=== PATIENT | male | born 1950 | race Caucasian/White ===

== ENCOUNTER 2018-09-08 09:23 | Day surgery (SDC) | payer OTHER ==
[~2018-09-08] VITALS: Ht 175.3 cm; Wt 77.3 kg
[2018-09-08 11:40] VITALS: BP 139/78; Ht 175.3 cm; Wt 77.3 kg
[2018-09-08] MEDS ORDERED: BAYER CHEWABLE81 MG PO (11:55)
[2018-09-08] MEDS ORDERED: FLOMAX0.4 MG PO (11:55)
[2018-09-08] MEDS ORDERED: LOPRESSOR25 MG PO (11:55)
[2018-09-08] MEDS ORDERED: MUCINEX600 MG PO (11:56)
[2018-09-08] MEDS ORDERED: PROVENTIL/2.5 MG/3 M INH (11:57)
[2018-09-08] MEDS ORDERED: SINGULAIR10 MG PO (11:57)
--- NOTE | 2018-09-08 14:02 | NUR ---
DC INSTRUCTIONS GIVEN TO PT. STATES UNDERSTANDING. GUARDS AT BEDSIDE. DC'D IV CATH FULLY INTACT.
--- NOTE | 2018-09-08 14:06 | NUR ---
PT LEFT UNIT VIA WC W/ GUARD AT SIDE AT 1410
--- NOTE | 2018-09-09 14:51 | OP ---
PATIENT NAME: ABEL BETANCOURT MEDICAL RECORD: [id number] :48 LOCATION:D.OPS ADMISSION DATE: SURGEON: PRO HAMMER MD DATE OF OPERATION: 09/08/2018 PREOPERATIVE DIAGNOSES: 1. Left upper quadrant abdominal pain. 2. Epigastric abdominal pain. 3. Gastroesophageal reflux. 4. History of peptic ulcer disease. 5. Dysphagia. POSTOPERATIVE DIAGNOSES: 1. Left upper quadrant abdominal pain. 2. Epigastric abdominal pain. 3. Gastroesophageal reflux. 4. History of peptic ulcer disease. 5. Dysphagia. 6. LA grade III distal esophagitis. 7. Schatzki's ring. 8. 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 9. Large hiatal hernia (grade IV). 10. No peptic ulcer. PROCEDURES: 1. Esophagogastroduodenoscopy with distal esophageal and antral biopsies. 2. Esophageal dilation with a tngehdq-ecz-vtmncdnk balloon to 60-German. SURGEON: Pro Hammer MD MANAGER OF DATA: None. BLOOD LOSS: Minimal. ANESTHESIA: IV sedation. COMPLICATIONS: None. The risks, possible complications and alternatives to the procedure were explained to the patient. He elects to proceed. The patient has undergone esophageal dilation in the past for dysphagia. He states that this did help his dysphagia. His dysphagia is now worsening. He desired a repeat esophageal dilation. The patient's endoscopic procedure is being done here at the hospital as he is ASA 3 and has multiple comorbidities. ENDOSCOPIC COURSE: The patient was conveyed to the endoscopy suite electively on 09/08/2018. IV sedation was induced by the anesthesia staff. A bite block was inserted. A gastroscope was inserted into the mouth. It was advanced easily into the hypopharynx. The esophagus was easily intubated as were the stomach and duodenum. Upon withdrawal, retroflexed and angulus views were obtained. Antral biopsies were obtained. I then advanced a clwmxta-ddy-cadpcprb balloon down through the gastroscope. I sequentially OPERATIVE REPORT [id number] ABEL BETANCOURT dilated the entire length of the esophagus to 60-German. The gastroscope and balloon dilator were then removed. I then re-endoscoped the patient's esophagus and stomach. There have been no false passage or perforation. Distal esophageal biopsies were obtained to rule out Longoria's esophagus. The endoscope was then withdrawn under direct vision. The patient may need to see an ENT physician regarding this right vocal cord lesion, which appears to be a papilloma. I would recommend continuing H2 aisha therapy or proton pump inhibitor therapy due to the large hiatal hernia and due to the degree of esophagitis present. I believe that the epigastric abdominal pain and the left upper quadrant abdominal pain may be due to bile reflux gastritis, which may improve with a bile binder such as Questran Light. There is no need for the patient to follow up with me in the office unless he develops a complication related to this operative procedure. TRANSINT:[id number] Voice Confirmation ID: [id number] DOCUMENT ID: [id number] PRO HAMMER MD at 1451 CC: SAFIA BOSTON MD, PRO SCHMIDT MD, PAOLA DIXON MD and [id number] DICTATION DATE: 09/08/18 1317 SMOKE EATER: 09/08/18 1551 [facility] 09/08/18 [facility] [address] [place] [address]
--- NOTE | 2018-09-09 14:51 | HP ---
PATIENT: ABEL BETANCOURT MEDICAL RECORD: [id number] ACCOUNT: [id number] LOCATION:[facility] : 48 ADMISSION DATE: 09/08/18 PCP: No PCP HISTORY AND PHYSICAL EXAMINATION PREOPERATIVE DIAGNOSES: Left-sided abdominal pain with radiation to the back, epigastric pain, history of peptic ulcer disease. This patient is being down in the hospital as he has multiple comorbidities and it was too risky to perform this procedure at the long term. DIAGNOSES: Include hypertension, chronic kidney disease stage III, COPD, coronary artery disease with 3-vessel CABG, chronic diastolic congestive heart failure, thoracic and abdominal aortic aneurysm, peripheral vascular disease, gastroesophageal reflux, eczema, seborrheic dermatitis, bilateral lower extremity edema, osteoarthritis, degenerative disc disease, right lower extremity stent, history of esophageal dilation. HOME MEDICINES: Acetaminophen, analgesic balm, artificial tears, low dose aspirin, atorvastatin, calcium carbonate, carvedilol, eczema lotion, H2 aisha (ranitidine), sertraline, tamsulosin, therapeutic tar shampoo, Xopenex high flow inhaler. PHYSICAL EXAMINATION: GENERAL: The patient appears chronically ill. He does not appear acutely ill. VITAL SIGNS: Reviewed. EARS: External ears appear normal. EYES: Extraocular movements are intact. NECK: Trachea is midline. CHEST: No intercostal retractions. PULMONARY: Nonlabored, no stridor. IMPRESSION: 1. Gastroesophageal reflux. 2. History of peptic ulcer disease. 3. Left upper quadrant abdominal pain. 4. Epigastric abdominal pain. PLAN: EGD with biopsies. TRANSINT:[id number] Voice Confirmation ID: [id number] DOCUMENT ID: [id number] PRO HAMMER MD at 1451 CC: SAFIA BOSTON MD, PRO SCHMIDT MD, PAOLA DIXON MD and [id number] DICTATION DATE: 09/08/18 1234 OPEN HEARTH FURNACE LABORER: 09/08/18 1322 [facility] 09/08/[address] [address]
== END 2018-09-08 14:10 | disposition home or self-care (01) ==
LOC: D.OPS 09:23
PROVIDERS: ATTEND Surgery
DX: K21.9 Gastro-esophageal reflux disease without esophagitis (principal); Z87.11 Personal history of peptic ulcer disease; R13.10 Dysphagia, unspecified; K20.8 Other esophagitis; K22.2 Esophageal obstruction; K44.9 Diaphragmatic hernia without obstruction or gangrene; K29.50 Unspecified chronic gastritis without bleeding; J38.3 Other diseases of vocal cords; Z01.812 Encounter for preprocedural laboratory examination

== ENCOUNTER 2019-03-23 05:27 | Day surgery (SDC) | payer OTHER ==
[~2019-03-23] VITALS: Ht 175.3 cm; Wt 78.2 kg
[~2019-03-23 05:27] MED LIST: BAYER CHEWABLE81 MG PO; FLOMAX0.4 MG PO; LOPRESSOR25 MG PO; MUCINEX600 MG PO; PROVENTIL/2.5 MG/3 M INH; SINGULAIR10 MG PO
[2019-03-23 06:18] LABS: HEMOGLOBIN 14.4 g/dL (13.5-17.5); MCH 31.2 pg (26.0-34.0); MCHC 32.7 g/dL (31.0-37.0); MCV 95.2 fL (80.0-100.0); RBC 4.62 10x6/uL (4.20-6.10); RDW 13.4 % (11.5-14.5); WBC 8.9 10x3/uL (4.8-10.8)
[2019-03-23 06:20] VITALS: BP 146/81; Ht 175.3 cm; Wt 78.2 kg
--- NOTE | 2019-03-23 09:29 | NUR ---
PT RESTING QUIETLY IN BED. GUARDS AT BEDSIDE. DENIES PAIN/NEEDS AT THIS TIME. WILL CONTINUE TO MONITOR.
--- NOTE | 2019-03-23 10:47 | NUR ---
PT RESTING QUIETLY IN BED. DENIES PAIN/NEEDS AT THIS TIME. UPDATE ON PROCEDURE TIME WAS GIVEN.
--- NOTE | 2019-03-23 13:50 | NUR ---
DC INSTRUCTIONS GIVEN TO PT. STATES UNDERSTANDING. DC'D IV CATH FULLY INTACT.
--- NOTE | 2019-03-23 13:58 | NUR ---
PT LEFT UNIT VIA WC AT 1402
--- NOTE | 2019-03-23 15:41 | HP ---
PATIENT: ABEL BETANCOURT MEDICAL RECORD: [id number] ACCOUNT: [id number] [facility] AD[facility] DATE: 03/23/19 PCP: No PCP HISTORY AND PHYSICAL EXAMINATION CHIEF COMPLAINT: History of colon polyps. HISTORY OF PRESENT ILLNESS: The patient has had a history of colon polyps. It has been over 3 years since his last colonoscopy. He did not undergo endoscopy out at the [facility] as he is too high risk and is ASA 4. ALLERGIES: No known drug allergies. HOME MEDICINES: Please see the nursing list. SOCIAL HISTORY: Ex-smoker. PAST MEDICAL AND SURGICAL HISTORY: History of alcohol use, history of THC use, asthma, COPD, coronary artery disease, hypertension, abdominal and thoracic aneurysms, congestive heart failure, CABG, leg stent, gastroesophageal reflux, stage III kidney disease, eczema, seborrheic dermatitis, bilateral lower extremity edema, degenerative disc disease, history of vocal cord lesion. PHYSICAL EXAMINATION: GENERAL: The patient does not appear acutely ill. He does appear chronically ill. VITAL SIGNS: Reviewed. EARS: External ears appear normal. EYES: Extraocular movements are intact. NECK: Trachea is midline. CHEST: No intercostal retractions. PULMONARY: Nonlabored. IMPRESSION: History of colon polyps for surveillance colonoscopy. PLAN: Surveillance colonoscopy. TRANSINT:[id number] Voice Confirmation ID: [id number] DOCUMENT ID: [id number] PRO HAMMER MD at 1541 CC: SAFIA BOSTON MD [id number] DICTATION DATE: 03/23/19 1235 SENIOR PROJECT ACCOUNTANT: 03/23/19 1353 [facility] 03/23/19 [place] [id number] [place] [id number]
--- NOTE | 2019-03-23 15:41 | OP ---
PATIENT NAME: ABEL BETANCOURT MEDICAL RECORD: [id number] :48 LOCATION:D.OPS ADMISSION DATE: SURGEON: PRO HAMMER MD DATE OF OPERATION: 03/23/2019 PREOPERATIVE DIAGNOSIS: History of colon polyps, in need of surveillance colonoscopy. POSTOPERATIVE DIAGNOSES: 1. History of colon polyps, in need of surveillance colonoscopy with moderate pandiverticulosis. 2. Inadequate colonic prep. PROCEDURES: Total colonoscopy to cecum (surveillance colonoscopy). SURGEON: Pro Hammer MD SOFTWARE ENGINEER MOBILE: None. BLOOD LOSS: Zero. ANESTHESIA: IV sedation. COMPLICATIONS: None. The risks, possible complications and alternatives to the procedure were explained to the patient. He elects to proceed. Discussion specifically included, but was not limited to, bleeding requiring an emergency reoperation, endoscopic perforation. ENDOSCOPIC COURSE: The patient was conveyed to the endoscopy suite electively on 03/23/2019. This procedure is being performed in the endoscopy suite as the patient is ASA 4 and is too high risk to perform an endoscopy out at the nursing home. A digital rectal examination was performed. The prostate was normal and without nodularity. A colonoscope was inserted through the anus. It was easily advanced to the cecum. The prep was inadequate. I can only exclude obstructing colonic polyps or masses due to the very poor prep. I slowly withdrew the endoscope. I irrigated and aspirated extensively. A combination of normal imaging and narrow band imaging were utilized. A retroflexed view was obtained in the rectum. I then unretroflexed the scope and removed it under direct vision. I am going to plan for the patient's next colonoscopy, which will be a surveillance colonoscopy to take place in 3 years. Due to his ASA classification that will need to be performed at a hospital. TRANSINT:[id number] Voice Confirmation ID: [id number] DOCUMENT ID: [id number] OPERATIVE REPORT [id number] SERAFINABEL HOOD PRO HAMMER MD at 1541 CC: SAFIA BOSTON MD [id number] DICTATION DATE: 03/23/19 1317 ASSEMBLY MECHANIC: 03/23/[address] [facility] [place] [place] 03/23/19 [place] [address]
== END 2019-03-23 14:02 | disposition home or self-care (01) ==
LOC: D.OPS 05:27
PROVIDERS: Anesthesiology; ATTEND Surgery
DX: Z86.010 Personal history of colon polyps (principal)